=== PATIENT | male | born 1955 | race Caucasian/White ===

== ENCOUNTER 2017-12-12 19:55 | Observation (INO) | payer BC ==
[~2017-12-12 19:55] MED LIST: Iopamidol 370 76% 100 ML VIAL ONE
[2017-12-12] MEDS ORDERED: Haloperidol Lactate 5 MG/ML VIAL ONE (20:13)
[2017-12-12 20:36] LABS: Bilirubin Negative (Negative); Blood, Urine Trace (Negative); Clarity CLOUDY (Clear); Glucose, Urine (Dipstick) Negative (Negative); Leukocyte Negative (Negative); Nitrite Negative (Negative); Protein, Urine (Dipstick) 100 mg/dL (Neg-Trace); Specific Gravity, Urine 1.016 (1.002-1.036); Urobilinogen 0.2 mg/dL (0.2-1.0)
[2017-12-12 20:38] LABS: Bacteria/HPF None Seen HPF (None Seen); Hyaline Casts/LPF 0-3 HYALINE CAST LPF (0-3 Hyaline); Pathc Cast-AUWi Flag 0.72 (0-2.49); RBC/HPF 0-3 HPF (0-3); Squamous Epithelial 0-3 HPF (0-3); WBC/HPF 0-3 HPF (0-3)
--- NOTE | 2017-12-12 20:50 | RAD ---
SINGLE VIEW OF THE CHEST: Comparison: 03-06-16 History: Vomiting since Wednesday. Chronic back pain. Shortness of breath. FINDINGS: Single view of the chest shows a normal sized cardiomediastinal silhouette. There is no evidence of c onsolidation, mass, or pleural effusion. The bones are unremarkable. IMPRESSION: No evidence of acute cardiopulmonary disease. POS: [facility]
[2017-12-12 21:23] LABS: CKMB 5.2 ng/mL (0-6.6); Troponin I 0.136 ng/mL (< 0.028)
[2017-12-12 21:28] LABS: ALT (SGPT) 26 U/L (8-55); AST (SGOT) 37 U/L (5-34); Albumin 4.1 g/dL (3.4-4.8); Alkaline Phosphatase 58 U/L (40-150); Anion Gap 17 mmol/L (10-20); BUN (Urea Nitrogen) 29 mg/dL (8.4-25.7); Bilirubin, Total 1.2 mg/dL (0.2-1.2); CK (CPK) 365 U/L (30-200); Calc. Creatinine Clearance 0 mL/min (70-130); Calcium 9.3 mg/dL (7.8-10.44); Carbon Dioxide 19 mmol/L (23-31); Chloride 104 mmol/L (98-107); Estimated GFR-MDRD 50; Globulin 3.2 g/dL (2.4-3.5); Glucose 104 mg/dL (80-115); Protein, Total 7.3 g/dL (5.8-8.1); Sodium 136 mmol/L (136-145)
[2017-12-12 22:05] LABS: Amphetamine Not Detected (NotDetected); Barbiturates Screen Not Detected (NotDetected); Benzodiazepine Screen Detected (NotDetected); Cocaine Metabolite Screen Not Detected (NotDetected); Medtox Control Line Valid? VALID (VALID); Medtox Reader # READER 1; Methadone Not Detected (NotDetected); Methamphetamine Not Detected (NotDetected); Opiate Screen Not Detected (NotDetected); Oxycodone Screen Not Detected (NotDetected); Phencyclidine (PCP) Not Detected (NotDetected); THC/Cannabinoid Screen Detected (NotDetected); Tricyclic Screen Not Detected (NotDetected)
[2017-12-12] MEDS ORDERED: Lorazepam 2 MG/ML VIAL ONE (22:33)
[2017-12-12] MEDS ORDERED: Ondansetron HCl/PF 4 MG/2 ML Vial IVP PRN (22:34)
[2017-12-12] MEDS ORDERED: Acetaminophen 325 MG TAB PO PRN (22:34)
[2017-12-12] MEDS ORDERED: Ondansetron ODT 4 MG TAB PO PRN (22:36)
--- NOTE | 2017-12-12 22:54 | CT ---
CT ABDOMEN AND PELVIS WITH IV CONTRAST: History: Abdominal pain, vomiting. FINDINGS/IMPRESSION: Comparison is made with exam of 03-04-16 and 07-07-15. Absence of oral contrast reduces the sensitivity of the exam for evaluation of bowel. The lung bases are clear. 1.3 cm cyst in the left lobe of the liver and bilateral renal cysts are sta ble. Tiny nonobstructing left renal calculus is again seen in the anterior pole of the left kidney. N o calcified gallstones are noted. Left adrenal nodules are stable since the noncontrast CT scan of and consistent with adenomas. No free air, free fluid, or lymphadenopathy is seen in the abdomen or pelvis. Vascular calcifications without evidence of aneurysmal dilatation of the abdominal aorta. A normal appearing appendix is see n. Prostate is mildly enlarged. There is colonic diverticulosis without evidence of diverticulitis. T here are degenerative changes in the spine. There are fat containing small left inguinal hernia is ag ain seen. IMPRESSION: No Acute Process. POS: [facility]
[2017-12-13] MEDS ORDERED: hydrALAZINE 20 MG/ML VIAL SLOW IVP PRN (00:34)
[2017-12-13 00:36] LABS: Troponin I 0.135 ng/mL (< 0.028)
--- NOTE | 2017-12-13 01:44 | HP ---
CHIEF COMPLAINT: Severe nausea and vomiting. PRIMARY CARE DOCTOR: Dr. White. CODE STATUS: FULL CODE. TIME OF EVALUATION: 2240 hours. HISTORY OF PRESENT ILLNESS: This is a 62-year-old male with past medical history of cyclic vomiting, use of marijuana, in the past has received multiple workups for this reason and no explanation has been given to the patient, and the report read as being only associated with marijuana use, this time they believe that it might be not related to it since the patient has not been smoking marijuana for quite some time or guess they did occasionally, history regarding these matters is not being very coherent. The patient reported that the symptoms are [id number], he is unable to hold anything down, the patient now does have received Zofran, as being able to drink water. No clear triggers. No alleviating factors. He was found to have mildly elevated troponin, acute kidney injury, and for those reasons he is being admitted in the hospital. REVIEW OF SYSTEMS: Constitutional: The patient reported no fever. He did have some chills, generalized weakness. Respiratory: No cough, no sputum production, no shortness of breath. Cardiovascular: No chest pain, palpitation , shortness of breath. Gastrointestinal: The patient has recurrent nausea and vomiting. No diarrhea, no abdominal pain. OFFSET PRINTER: No dizziness, headache, or feeling lightheaded. Genitourinary: No burning on urination. Extremities: No leg swelling. All other systems were reviewed and negative except for the findings mentioned above. PAST MEDICAL HISTORY: Patient has a history of hypertension, enlarged prostate , cyclic vomiting. FAMILY HISTORY: Reviewed and noncontributory for current presentation. PAST SURGICAL HISTORY: Left kidney surgery, hernia repair, left foot surgery, tonsillectomy. PSYCHIATRIC HISTORY: No significant history. SOCIAL HISTORY: The patient drinks socially. Patient uses marijuana on a daily basis, reported as just taking for pain. KNOWN ALLERGIES: No known drug allergies. REPORTED MEDICATIONS: Amlodipine 10 mg once a day, Lasix 40 mg two times a day , terazosin 10 mg once a day, Cymbalta 60 mg orally once a day, melatonin 10 mg once a day. PHYSICAL EXAMINATION: VITAL SIGNS: Temperature 98.8, pain 4, heart rate 85, respiratory rate 20, oxygen saturation 97 on room air, blood pressure 170/117 that came down to 144/ 87. GENERAL APPEARANCE: The patient is alert, oriented, in no acute distress. HEENT: Eye, normal conjunctivae. Moist oral mucosa. Eye anicteric. NECK: No JVD. RESPIRATORY: Bilateral air entry. No rales, no wheezes. Symmetric expansion. CARDIOVASCULAR: Normal rate, regular rhythm, no murmur, no gallop, no edema. ABDOMEN: Soft, normal bowel sounds. MUSCULOSKELETAL: Baseline range of motion and strength. No tenderness. SKIN: Warm and intact. No pallor, no rash, no redness. NEUROLOGIC: Baseline sensory. No evidence of any new focal weakness. Baseline speech. Cranial nerves seem to be intact. PSYCHIATRIC: The patient is in good mood. No anxiety. Optimal judgment. LABORATORY DATA: The labs were reviewed. The patient has a sodium 133, potassium 4, chloride 104, carbon dioxide 19, creatinine 1.44, BUN 29, AST 37, total bilirubin 1.2. CK 365, troponin 0.136. The initial one at 6:00 p.m. was 0.154. The urine was normal. The toxicology was reviewed. The patient is positive for benzodiazepines and marijuana. Chest x-ray was negative for any acute process. Abdominal and pelvis CT was negative for any acute process. ASSESSMENT AND PLAN: The patient will be placed in the hospital for the following medical condition. 1. Recurrent nausea and vomiting: We will treat symptomatically, likely secondary to marijuana use/withdrawal. Also, patient and family refused to accept that fact. It is my understanding the patient has received extensive workup in the past. No organic problem as before. Ct. abdomen negative. 2. Acute kidney injury: The patient presented with a creatinine of 1.8. In previous admission, it was 0.95. The patient might be dehydrated, because of the nausea and vomiting and because he has been unable to feed himself. We will treat the underlying condition. We will give hydration. We will monitor kidney function. 3. Elevated troponin, 0.136, this is minimal, could be related to type 2 non-ST -elevation myocardial infarction. We will trend troponins. Could be also due to acute kidney injury. The patient has no chest pain, no other findings on EKG to suggest acute coronary syndrome. 4. Chronic use of marijuana: The patient reported that he does it for pain relief, but advised to switch to a different pain management strategy. 5. Deep venous thrombosis prophylaxis. 6. Uncontrolled hypertension. The patient presented with a blood pressure higher than 140, reconcile home medications, adjust treatment as needed. This is chronic. MTDD
[2017-12-13] MEDS: Sodium Chloride 0.9% 1,000 ML IV SCH ×2 (02:17→16:49)
[2017-12-13 03:06] LABS: #Lymphocytes 1.1 thou/uL (1.20-3.40); #Monocytes 0.9 thou/uL (0.11-0.59); #Neutrophils 8.1 thou/uL (1.40-6.50); %Basophils 0.1 % (0.0-1.0); %Eosinophils 0.1 % (0.0-10.0); %Lymphocytes 10.8 % (21.0-51.0); %Monocytes 8.6 % (0.0-10.0); %Neutrophils 80.4 % (42.0-75.0); Hemoglobin 15.3 g/dL (14.0-18.0); Mean Corpuscular HGB CONC 34.7 g/dL (32.0-36.0); Mean Corpuscular Hemoglobin 31.1 pg (27.0-31.0); Mean Corpuscular Volume 89.7 fL (78.0-98.0); Mean Platelet Volume 7.4 fL (7.4-10.4); Platelet Count 198 thou/uL (130-400); RBC Distribution Width 12.3 % (11.5-14.5); Red Blood Cell (RBC) Count 4.92 mill/uL (4.70-6.10); White Blood Cell (WBC) Count 10.1 thou/uL (4.8-10.8)
[2017-12-13 03:37] LABS: Troponin I 0.112 ng/mL (< 0.028)
[2017-12-13 04:10] LABS: Anion Gap 14 mmol/L (10-20); BUN (Urea Nitrogen) 22 mg/dL (8.4-25.7); Calc. Creatinine Clearance 98 mL/min (70-130); Calcium 9.5 mg/dL (7.8-10.44); Carbon Dioxide 25 mmol/L (23-31); Chloride 103 mmol/L (98-107); Estimated GFR-MDRD 63; Glucose 111 mg/dL (80-115); Sodium 139 mmol/L (136-145)
[2017-12-13 05:05] LABS: Lactic Acid 0.8 mmol/L (0.5-2.2)
[2017-12-13] MEDS ORDERED: Potassium Chloride 10 MEQ TAB PO SCH (08:00)
[2017-12-13] MEDS ORDERED: DULoxetine 60 MG CAP PO SCH ×2 (09:00)
[2017-12-13] MEDS ORDERED: Metoprolol Tartrate 25 MG TAB PO SCH (09:00)
[2017-12-13] MEDS ORDERED: Terazosin HCl 5 MG CAP PO SCH (09:00)
[2017-12-13] MEDS ORDERED: Amlodipine 10 MG TAB PO SCH (09:00)
[2017-12-13] MEDS ORDERED: Multivit, Therapeutic 1 TAB PO SCH (09:00)
[2017-12-13] MEDS ORDERED: hydrALAZINE 25 MG TAB PO SCH (09:00)
[2017-12-13 09:23] LABS: Troponin I 0.066 ng/mL (< 0.028)
--- NOTE | 2017-12-13 11:33 | CON ---
DATE OF CONSULTATION: 12/13/2017 HISTORY: Arsh Babcock is a 62-year-old white male who over the last 2-1/2 years has had several admissions for intractable nausea and vomiting. The most recent episode was in 02/2016. EGD at that time showed a shallow gastric ulcer and severe duodenitis. He again had an episode with onset of nausea and vomiting on 12/10/2017. He stated that he was nauseated and would vomit for 10- 12 hours. On the , he seemed to improve, then again on , he began to have intractable nausea and vomiting. When he has the nausea and vomiting episodes, he states that he becomes very diaphoretic and mildly short of breath , but denies any chest, arm, neck, or jaw discomfort during that time. He had very minimally elevated cardiac enzymes despite he had continual nausea and vomiting for 10-12 hours. PAST MEDICAL HISTORY: Hypertension. He denies any history of hypercholesterolemia, although LDL was 120 in 05/2017. History of benign prostatic hypertrophy. OPERATIONS: Left kidney surgery, hernia repair, left foot surgery, tonsillectomy. MEDICATIONS AT HOME: Include amlodipine/valsartan 10/160 daily, Valium 10 mg p.r.n., Cymbalta 60 mg daily, hydralazine 25 b.i.d., metoprolol 12.5 b.i.d., and Hytrin 10 mg daily. ALLERGIES: None. SOCIAL HISTORY: He smoked for 30 years, stopped 20 years ago. He does continue to dip snuff, however. Uses marijuana on a daily basis. FAMILY HISTORY: Negative for coronary artery disease in immediate family. REVIEW OF SYSTEMS: Twelve-point review of systems otherwise unremarkable. PHYSICAL EXAMINATION: VITAL SIGNS: Blood pressure 159/99, pulse 75. HEENT: PERRL. NECK: Supple. CHEST: Clear. CARDIAC: S1 and S2 are normal, without any S3, S4 or murmurs. Carotid upstrokes are normal without bruits. ABDOMEN: Normal bowel sounds without tenderness. EXTREMITIES: Revealed no clubbing, cyanosis or edema. NEUROLOGIC: Grossly intact. SKIN: Warm and dry. IMAGING DATA AND LABORATORY DATA: EKG reveals normal sinus rhythm with left anterior fascicular block. CBC is unremarkable. When admitted, BUN was 34, creatinine 1.81. However, with hydration creatinine is now 1.17 with BUN of 22. Sodium 139, potassium 3.0, chloride 103 and carbon dioxide 25. Peak troponin I is 0.154 at the time of admission. CK-MB x2 are normal. CK is elevated at 365. Chest x-ray is unremarkable. Abdominal and pelvis CT revealed no acute process. IMPRESSION: 1. Elevated troponin I with normal MB. This is probably due to demand ischemia in the setting of acute kidney injury. It would seem as if his intractable nausea, vomiting, shortness of breath and diaphoresis were symptoms of myocardial ischemia, his troponin I levels would be much higher with this occurring for 10-12 hours. 2. Intractable nausea and vomiting of uncertain etiology. 3. Hypertension. 4. Hypercholesterolemia with LDL of 120 in the past, untreated. 5. Former smoker, although continues to use snuff. PLAN: Patient will undergo adenosine Cardiolite testing. Further evaluation will depend upon results of that test. MTDD
[2017-12-13] MEDS: Potassium Chloride 40 MEQ in Sodium Chloride 0.9% 250 ML 250 ML IVPB SCH ×2 (12:04→18:20)
[2017-12-13] MEDS ORDERED: ADENOSINE 60 MG/20 ML VIAL ONE (13:30)
[2017-12-13] MEDS: Heparin 5,000 UNITS/ML VIAL SC SCH ×4 (13:42→16:55)
--- NOTE | 2017-12-13 14:01 | PDOC.PN ---
- Subjective Encounter Start Date: 12/13/17 Encounter Start Time: 08:00 Pt seen for followup re: nausea and vomiting. feels better. No chest pain. No fevers or chills. - Objective Resuscitation Status: Resuscitation Status FULL:Full Resuscitation Vital Signs & Weight: Vital Signs (12 hours) Temp Pulse Resp BP BP Pulse Ox 12/13/17 11:03 98.0 F 66 18 130/81 95 12/13/17 09:33 75 12/13/17 09:00 98.2 F 75 12 12/13/17 07:22 98.2 F 75 12 159/99 H 93 L 12/13/17 04:11 98.8 F 79 16 127/72 93 L 12/13/17 02:22 18 151/87 H 73 L Weight Weight 228 lb 9.6 oz I&O: 12/12/17 12/13/17 12/14/17 06:59 06:59 06:59 Intake Total 181 Output Total 550 Balance -369 Result Diagrams: 12/13/17 02:57 12/13/17 02:57 Phys Exam - Physical Examination Constitutional: NAD HEENT: sclera anicteric, oral pharynx no lesions, 2+ tonsils Dry mucosae Neck: no nodes, no JVD, supple, full ROM Respiratory: no wheezing, no rales, no rhonchi, clear to auscultation bilateral Cardiovascular: RRR, no rub S1, S2 Gastrointestinal: soft, non-tender, no distention, positive bowel sounds Musculoskeletal: no edema Neurological: moves all 4 limbs Psychiatric: normal affect, A&O x 3 Dx/Plan (1) Nausea and vomiting Code(s): R11.2 - NAUSEA WITH VOMITING, UNSPECIFIED Status: Acute Comment: Improving, continue antiemetics as below (2) Hypokalemia Code(s): E87.6 - HYPOKALEMIA Status: Acute Comment: replace potassium (3) Elevated troponin Code(s): R74.8 - ABNORMAL LEVELS OF OTHER SERUM ENZYMES Status: Acute Comment: monitor on telemetry, await cardiology input (4) BPH (benign prostatic hyperplasia) Code(s): N40.0 - BENIGN PROSTATIC HYPERPLASIA WITHOUT LOWER URINRY TRACT SYMP Status: Chronic Comment: stable (5) HTN (hypertension) Code(s): I10 - ESSENTIAL (PRIMARY) HYPERTENSION Status: Chronic Comment: Monitor vital signs, titrate antihypertensives as needed (6) DAVIN (acute kidney injury) Code(s): N17.9 - ACUTE KIDNEY FAILURE, UNSPECIFIED Status: Resolved - Plan * . Review of Systems - Review of Systems Constitutional: negative: fever, chills, sweats, weakness, malaise Respiratory: negative: Cough, Shortness of Breath, SOB with Excertion, Pleuritic Pain, Wheezing Cardiovascular: negative: chest pain, palpitations, orthopnea, paroxysmal nocturnal dyspnea, edema, light headedness, other Gastrointestinal: Nausea, Vomiting. negative: Abdominal Pain, Diarrhea, Constipation, Melena, Hematochezia Genitourinary: negative: Dysuria, Frequency, Incontinence, Hematuria, Retention Skin: negative: Rash, Lesions, Randy, Bruising - Medications/Allergies Allergies/Adverse Reactions: Allergies Allergy/AdvReac Type Severity Reaction Status Date / Time No Known Allergies Allergy Verified 12/12/17 23:34 Medications: Current Medications Acetaminophen (Tylenol) 650 mg PO Q4H PRN PRN Reason: Headache/Fever or Pain Amlodipine Besylate (Norvasc) 10 mg PO DAILY [facility] Last Admin: 12/13/17 09:33 Dose: 10 mg Duloxetine HCl (Cymbalta) 60 mg PO DAILY [facility] Last Admin: 12/13/17 09:33 Dose: 60 mg Heparin Sodium (Porcine) (Heparin) 5,000 units SC TID [facility] Last Admin: 12/13/17 13:42 Dose: Not Given Hydralazine HCl (Apresoline) 25 mg PO BID [facility] Last Admin: 12/13/17 09:33 Dose: 25 mg Hydralazine HCl (Apresoline) 10 mg SLOW IVP Q4H PRN PRN Reason: BP>160/100 Sodium Chloride (Normal Saline 0.9%) 1,000 mls @ 75 mls/hr IV .[id number] [facility] Last Admin: 12/13/17 02:17 Dose: 1,000 mls Potassium Chloride 40 meq/ (Sodium Chloride) 270 mls @ 67.5 mls/hr IVPB NOW [facility] Stop: 12/13/17 15:59 Last Admin: 12/13/17 12:04 Dose: 270 mls Melatonin (Melatonin) 3 mg PO [facility] Metoprolol Tartrate (Lopressor) 12.5 mg PO BID [facility] Last Admin: 12/13/17 09:34 Dose: 12.5 mg Multivitamins (Theragran) 1 tab PO DAILY [facility] Last Admin: 12/13/17 09:33 Dose: 1 tab Ondansetron HCl (Zofran) 4 mg IVP Q6H PRN PRN Reason: Nausea/Vomiting Ondansetron HCl (Zofran Odt) 4 mg PO Q4H PRN PRN Reason: Nausea/Vomiting Pantoprazole Sodium (Protonix) 40 mg PO BID [facility] Potassium Chloride (Klor-Con 10) 10 meq PO [facility]A-[facility] Last Admin: 12/13/17 13:42 Dose: Not Given Terazosin HCl (Hytrin) 10 mg PO DAILY [facility] Last Admin: 12/13/17 09:33 Dose: 10 mg
[2017-12-13 14:28] VITALS: BMI 30.9
--- NOTE | 2017-12-13 15:57 | NM ---
NUCLEAR MEDICINE CARDIAC STRESS WITH EF AND WALL MOTION: HISTORY: Elevated troponin. COMPARISON: None. TECHNIQUE: The patient was administered 9 millicuries of technetium 99m sestamibi for rest imaging and 31 millic uries of technetium 99m sestamibi for stress imaging. FINDINGS: There is a homogeneous distribution of the radiotracer in the left ventricle on the attenuation corre cted images. There is no evidence of reversibility or fixed defect. CAD is 1.1. End-diastolic volume is 179 mL. End-systolic volume is 78 mL. CARDIAC GATING: Normal motion and thickening. Ejection fraction 56%. IMPRESSION: 1. No reversibility. No fixed defect. 2. Ejection fraction 56%. POS: [facility]
[2017-12-13 15:58] VITALS: BP 145/86; TEMP 98.6
[2017-12-13] MEDS ORDERED: Potassium Chloride 20 MEQ TAB PO SCH (16:45)
[2017-12-13] MEDS ORDERED: Melatonin 3 MG TAB PO SCH (21:00)
--- NOTE | 2017-12-14 03:25 | DIS ---
PRIMARY CARE PROVIDER: Jake White M.D. DATE OF ADMISSION: 12/12/2017 DATE OF DISCHARGE: 12/13/2017 DISCHARGE DIAGNOSES: 1. Nausea and vomiting. 2. Elevated troponin I. 3. Acute renal insufficiency. 4. Hypokalemia. CONDITION OF PATIENT ON THE DAY OF DISCHARGE: Stable. I assessed Mr. Babcock on the day of discharg e. Please refer to my daily hospitalist progress note for further information regarding this face-to -face encounter. DISCHARGE MEDICATIONS: No change was made to his preadmission home medications. He is being dischar ged home on amlodipine/valsartan 10/160 mg daily, Valium 10 mg as directed, Cymbalta 60 mg daily, hyd ralazine 25 mg 2 times a day, Lopressor 12.5 mg 2 times a day, and terazosin 10 mg daily. CONSULTATIONS DURING THIS HOSPITALIZATION: Cardiology, Dr. Bustillo. HOSPITAL COURSE: Mr. Babcock is a pleasant 62-year-old gentleman, who was admitted to [facility] on 12/12/2017 for nausea and vomiting, likely secondary to marijuana use. He was also found to have elevated troponin I and acute renal insufficiency. His nausea and vomiting resol sparkle following admission. Acute renal failure also resolved after he received intravenous fluids. He was seen by Cardiology Service and underwent a nuclear stress test on 12/13/2017. He was found to h ave left ventricular ejection fraction of 56%. There was no reversibility or fixed defect on the str ess test. He also had a normal D-dimer. He did not have any further symptoms and is being discharged home in a stable condition. On the day of discharge, he has an unremarkable CBC, normal sodium, decreased potassium of 3.0, which is being replaced and a creatinine of 1.17. Urine drug screen during this hospitalization was posit alhaji for benzodiazepines and cannabinoids. He has been advised to stop cannabinoid use. Many thanks for allowing me to participate in your patient's care. Please feel free to contact me wi th any questions or concerns. DISCHARGE DESTINATION: Home.
--- NOTE | 2017-12-17 10:08 | STRESS ---
Acquisition Time: 2017-12-13 14:08:52 Total Exercise Time: 00:04:00 Test Indications: ELEVATED TROPONINS Medications: Protocol: ADENOSINE Max HR: 076 BPM 48% of Pred: 157 BPM Max BP: 146/072 mmHG Max Work Load: 1.0 METS RESTING ECG: NORMAL SINUS RHYTHM AT65 BPM WITH NON-SPECIFIC T-WAVE CHANGES SYMPTOMS: CHEST AND THROAT TIGHTNESS NORMAL BP RESPONSE ECTOPY: BLOCKED PAC'S ECG STRESS: NO SIGNIFICANT CHANGES INTERPRETATION: AWAIT NUCLEAR IMAGES FOR DEFINITIVE DIAGNOSIS Confirmed by ALTON CAMPBELL (2), editor magazine XENIA HOLLINS ([id number]) on 12/17/2017 10:08:15 AM Referred By: MD Porfirio CAMPBELL Confirmed By:ALTON CAMPBELL
== END 2017-12-13 18:17 | disposition home or self-care (01) ==
LOC: ERS 19:55 → 2SW 22:26
PROVIDERS: ADMIT Hospitalist; ATTEND Hospitalist
DX: R11.2 Nausea with vomiting, unspecified (principal); R79.89 Other specified abnormal findings of blood chemistry; N28.9 Disorder of kidney and ureter, unspecified; E87.6 Hypokalemia; I10 Essential (primary) hypertension; E78.00 Pure hypercholesterolemia, unspecified; N40.0 Benign prostatic hyperplasia without lower urinary tract symptoms; Z79.899 Other long term (current) drug therapy; Z87.891 Personal history of nicotine dependence
CPT/HCPCS: 36415; 71045; 74177; 78452; 80048; 80306; 81003; 81015; 83605; 84484; 85025; 85379; 93017; 96361; 96374; 96375; A9500; G0378; J0153; J1630; J1644; J2060; J3480; J7050

== ENCOUNTER 2018-01-10 08:28 | Outpatient (CLI) | payer BC | END 2018-01-10 08:29 | disposition home or self-care (01) | LOC: BICMRI 08:28 | PROVIDERS: ATTEND Family Medicine | DX: M54.2 Cervicalgia (principal); M54.5 Low back pain; M48.02 Spinal stenosis, cervical region; M48.061 Spinal stenosis, lumbar region without neurogenic claudication; M99.81 Other biomechanical lesions of cervical region; M99.83 Other biomechanical lesions of lumbar region; M47.896 Other spondylosis, lumbar region | CPT/HCPCS: 72141; 72148 ==

== ENCOUNTER 2018-06-24 10:15 | Inpatient (IN) | payer BC ==
[2018-06-28] MEDS ORDERED: CEFAZOLIN 2 GM/50 ML BAG ONE (06:09)
[2018-06-28] MEDS ORDERED: Tranexamic Acid 1,000 MG/10 ML VIAL ONE ×2 (06:09→10:24)
[2018-06-28] MEDS ORDERED: Sodium Chloride 0.9% 100 ML ONE (06:09)
[2018-06-28] MEDS ORDERED: Fentanyl 100 MCG/2 ML VIAL ONE (06:33)
[2018-06-28] MEDS ORDERED: Midazolam HCl 2 mg/2 ml Vial ONE (06:33)
[2018-06-28] MEDS ORDERED: Lidocaine 1% (PF) 30 ML VIAL ONE (07:11)
[2018-06-28] MEDS ORDERED: traMADol HCl 50 MG TAB PO PRN ×4 (07:25→12:41)
[2018-06-28] MEDS ORDERED: HYDROcodone/Acetaminophen 10/325 mg Tablet PO PRN ×3 (07:25→12:41)
[2018-06-28] MEDS ORDERED: Ondansetron PF 4 MG/2 ML Vial IVP PRN ×2 (07:25→12:41)
[2018-06-28] MEDS ORDERED: Promethazine HCl 25 MG/ML VIAL IM PRN ×2 (07:25→09:06)
[2018-06-28] MEDS ORDERED: Ropivacaine 0.2% 550 ML 550 ML NERVE BLCK SCH (07:25)
[2018-06-28] MEDS ORDERED: Zolpidem Tartrate 5 MG TAB PO PRN ×2 (07:25→12:41)
[2018-06-28] MEDS ORDERED: Promethazine HCl 25 MG/ML VIAL SLOW IVP PRN (09:06)
[2018-06-28] MEDS ORDERED: Ondansetron HCl/PF 4 MG/2 ML Vial IVP PRN (09:06)
[2018-06-28] MEDS ORDERED: Tranexamic Acid 1,000 MG in Sodium Chloride 0.9% 100 ML IVPB SCH (10:00)
[2018-06-28] MEDS ORDERED: Ropivacaine 0.5% HCl/PF (150 MG/30 ML VIAL) ONE (10:13)
[2018-06-28] MEDS ORDERED: Ropivacaine 0.2% HCl/PF (40 MG/20 ML VIAL) ONE (10:13)
--- NOTE | 2018-06-28 11:58 | RAD ---
RADIOGRAPH LEFT SHOULDER TWO VIEWS: Date: 06-28-18 History: 63-year-old male with chronic left shoulder pain due to osteoarthritis. FINDINGS: Anterior skin duane. Metallic humeral head prosthesis with short stem that reaches the proximal remy physis. Resurfacing changes of the glenoid. Subcutaneous emphysema. Nonspecific retrocardiac opacific ation of left lung, perhaps atelectasis. IMPRESSION: Very recently status post left glenohumeral shoulder joint replacement arthroplasty. POS: [facility]
[2018-06-28] MEDS ORDERED: ePHEDrine/0.9% NaCl/PF SYRINGE 50 mg/10 ml ONE (12:40)
[2018-06-28] MEDS ORDERED: PROPOFOL 200 MG/20 ML VIAL ONE (12:40)
[2018-06-28] MEDS ORDERED: Ondansetron PF 4 MG/2 ML Vial ONE (12:40)
[2018-06-28] MEDS ORDERED: Lidocaine 1% PF 5 ML VIAL ONE (12:40)
[2018-06-28] MEDS ORDERED: diphenhydrAMINE 50 MG CAP PO PRN (12:41)
[2018-06-28] MEDS ORDERED: Acetaminophen 325 MG TAB PO PRN (12:41)
[2018-06-28] MEDS ORDERED: Methocarbamol 500 MG TAB PO PRN (12:41)
[2018-06-28] MEDS ORDERED: Ondansetron ODT 4 MG TAB PO PRN (12:41)
[2018-06-28] MEDS ORDERED: Methocarbamol 1 GM/10 ML VIAL SLOW IVP PRN (12:41)
[2018-06-28] MEDS ORDERED: Bisacodyl 10 MG SUPP PR PRN (12:41)
[2018-06-28] MEDS ORDERED: Milk Of Magnesia 30 ML UDCUP PO PRN (12:41)
[2018-06-28] MEDS ORDERED: Ketorolac Tromethamine 30 MG/ML VIAL IVP PRN (12:41)
[2018-06-28] MEDS ORDERED: CEFAZOLIN/Water 2 GM/20 ML SYRINGE SLOW IVP SCH (12:41)
[2018-06-28] MEDS ORDERED: Famotidine 20 MG TAB PO SCH (13:30)
[2018-06-28] MEDS ORDERED: CEFAZOLIN 2 GM/50 ML-DEXTROSE 2 GM in Premix Bag 1 BAG IVPB SCH (14:00)
[2018-06-28 15:24] VITALS: BMI 39.3
[2018-06-28] MEDS: Sodium Chloride 0.9% 1,000 ML IV SCH (15:45)
[2018-06-28] MEDS: CEFAZOLIN 2 GM/50 ML-DEXTROSE 2 GM in Premix Bag 1 BAG IVPB SCH ×2 (15:45→23:22)
[2018-06-28] MEDS: Fentanyl 100 MCG/2 ML VIAL SLOW IVP PRN ×2 (17:19→18:48)
[2018-06-28] MEDS: Famotidine 20 MG TAB PO SCH (20:03)
[2018-06-28] MEDS: Metoprolol Tartrate 25 MG TAB PO SCH (20:03)
[2018-06-28] MEDS: HYDROcodone/Acetaminophen 10/325 mg Tablet PO PRN (20:04)
[2018-06-28] MEDS ORDERED: Terazosin HCl 5 MG CAP PO SCH (21:00)
[2018-06-28] MEDS ORDERED: DULoxetine 60 MG CAP PO SCH (21:00)
[2018-06-29] MEDS: HYDROcodone/Acetaminophen 10/325 mg Tablet PO PRN ×2 (01:57→08:16)
[2018-06-29 04:21] VITALS: TEMP 98.3
[2018-06-29] MEDS: Sodium Chloride 0.9% 1,000 ML IV SCH (05:15)
[2018-06-29] MEDS: Famotidine 20 MG TAB PO SCH (08:17)
[2018-06-29] MEDS: Metoprolol Tartrate 25 MG TAB PO SCH (08:17)
[2018-06-29 08:19] VITALS: BP 149/88
[2018-06-29] MEDS ORDERED: Valsartan 80 MG TAB PO SCH (09:00)
[2018-06-29] MEDS ORDERED: Amlodipine 10 MG TAB PO SCH (09:00)
--- NOTE | 2018-06-29 13:37 | OP ---
DATE OF PROCEDURE: 06/28/2018 PREOPERATIVE DIAGNOSES: Left shoulder osteoarthritis with biceps tendinopathy. POSTOPERATIVE DIAGNOSES: Left shoulder osteoarthritis with biceps tendinopathy. PROCEDURES PERFORMED: 1. Left total shoulder arthroplasty. 2. Left biceps tenodesis. APPOINTMENT SETTER: Catrina Perez PA-C. ANESTHESIOLOGIST: Jose Abdalla. ANESTHESIA: The patient received a general endotracheal intubation with interscalene block. ESTIMATED BLOOD LOSS: 300 mL. TOURNIQUET TIME: None. IMPLANTS: Tornier glenoid 5 with M40 CORTILOC stem, 3B flex stem and a 48 x 18 mm high offset head. ANTIBIOTICS: Ancef 2 g, vancomycin 2 g, and TXA 1 g. COMPLICATIONS: Skin abrasion. HISTORY OF PRESENT ILLNESS: Mr. Babcock is a pleasant 63-year-old male, who is borderline obese, presented with left shoulder pain for over 3 years. The patient followed with conservative measures. The patient had a CT scan showing intact cuff, but a partial-thickness tear. I discussed with the patient the risks and benefits of left shoulder arthroplasty and biceps tenodesis to include pain, scar, bleeding, infection, damage to vital structures, decreased range of motion and strength, fracture, any further surgeries needed for hardware removal, and loss of life or limb. He understood these risks and benefits and would like to proceed. DESCRIPTION OF PROCEDURE: A time-out was performed designating the patient's left upper extremity as the operative site, based on site, consent, and markings. After time-out, the patient had an Ioban applied. The patient had a deltopectoral incision made down through the deltopectoral interval, came between the deltoid intact, found the fat stripe, came down, found the vein, took it laterally, came down and took down a centimeter intact from the conjoint and exposed the shoulder. I took down the patient using biceps from laterally to expose the biceps, followed up into the interval. Cut down the subscapularis taking it off and capsule completely off and peel from lateral to medial. Exposed the inferior neck removing any osteophytes. We then exposed the head, placed a and cut the humeral head. I ended up having a little bit of a high side posteriorly, which I recut. We then exposed the entire humerus. We broached and went down to 3B. Next, went up to 4 first and reamed on top, the reamer skipped off and just abraded over the skin, thus a distal incision, but did not take off any full-thickness skin injury. We then moved down to 3B, finally got good firm position within the head as well as good fixation. We then removed the stem. We placed a cup cap, moved back to the patient's glenoid. We did 360 degree release around the glenoid. To expose the glenoid, we agree with 360 degree release. We placed retractors in position. We introduced a medium 40 glenoid. We drilled a center hole. We then reamed, increased our center hole, and placed our implant in place. We drilled for cortical pegs, placed our cortical pegs in position. We trialed, like that we then cemented in the exterior holes, placed our cortical peg back in position, and moved back to our humerus. These are humerus put pressure on the glenoid. We then, went up into size and liked the fit of the 40 of the 48 mm head, I fitted across the trial size. Otherwise, felt a good fit across the head in a good contour with the patient's cartilage surface near the insertion of the rotator cuff. We then trialed, had 50% translation, we came back. He did not stay subluxed. The patient was able to do overhead elevation and internally rotate without any difficulty. I liked the overall position. We then removed. We drilled 4 holes and passed sutures with #5 Ethibond stitches just off the lesser tuberosity. We then drilled a hole and passed a suture in and out through the lateral aspect of the greater tuberosity for stitch over the top. I then put on final implant, reduced the shoulder. I did W stitch passing through the cuff with the needle limb closest to the humerus. I then passed with a free needle through the limb and muscle remnant that was the ligament for the biceps sewed down from inferior to superior with the patient about neutral position. We then cut those knots. We tenodesed the biceps with #1 Ethibonds underneath the remnant the ligament across the bicipital groove. We then undersewed that with 3 stitches. We then oversewed with #1, we then closed the interval with #1 Ethibonds. We then used a 2 stitch that was in the calf and the one that was laterally with the tuberosity oversew. The cross was like a double row equivalent, cut the sutures, washed, and closed the deltopectoral interval, closed subcu and skin with duane. The patient will be admitted to the hospital. He will begin elbow, wrist, and hand motion and passive range of motion. I will see the patient back in clinic back in 2 weeks. The patient will receive 24 hours antibiotics. Job ID: [id number] [facility]
== END 2018-06-29 11:48 | disposition home or self-care (01) | DRG 483 ==
LOC: SURG A 06-28 05:47
PROVIDERS: ADMIT Orthopaedic Surgery; ATTEND Orthopaedic Surgery
PROC: 0RRK0JZ Replacement of Left Shoulder Joint with Synthetic Substitute, Open Approach (ICD-10-PCS; principal; 2018-06-28)
PROC: 0LS40ZZ Reposition Left Upper Arm Tendon, Open Approach (ICD-10-PCS; 2018-06-28)
DX: M19.012 Primary osteoarthritis, left shoulder (principal); M75.21 Bicipital tendinitis, right shoulder
CPT/HCPCS: 80048; 81001; 85025; 86850; 86900; 86901; 90471; 90686; 93005; 93010; A4306; C1713; G0008; J2001; J2250; J2795; J3010; J3370; J7050

== ENCOUNTER 2018-06-27 06:19 | Outpatient (CLI) | payer BC ==
[2018-06-27 09:58] LABS: #Eosinphils 0.1 thou/uL (0.0-0.7); #Lymphocytes 0.9 thou/uL (1.20-3.40); #Monocytes 0.6 thou/uL (0.11-0.59); #Neutrophils 5.6 thou/uL (1.40-6.50); %Basophils 0.4 % (0.0-1.0); %Eosinophils 1.3 % (0.0-10.0); %Lymphocytes 12.3 % (21.0-51.0); %Monocytes 8.4 % (0.0-10.0); %Neutrophils 77.6 % (42.0-75.0); Bilirubin Negative (Negative); Blood, Urine Negative (Negative); Clarity CLEAR (Clear); Glucose, Urine (Dipstick) Negative (Negative); Hemoglobin 15.1 g/dL (14.0-18.0); Leukocyte Negative (Negative); Mean Corpuscular HGB CONC 33.3 g/dL (32.0-36.0); Mean Corpuscular Hemoglobin 30.8 pg (27.0-31.0); Mean Corpuscular Volume 92.5 fL (78.0-98.0); Mean Platelet Volume 7.7 fL (7.4-10.4); Nitrite Negative (Negative); Platelet Count 190 thou/uL (130-400); Protein, Urine (Dipstick) 30 mg/dL (Neg-Trace); Specific Gravity, Urine 1.018 (1.002-1.036); White Blood Cell (WBC) Count 7.2 thou/uL (4.8-10.8); pH, Urine 6.5 (5.0-9.0)
[2018-06-27 09:59] LABS: Bacteria/HPF None Seen HPF (None Seen); Hyaline Casts/LPF 0-3 HYALINE CAST LPF (0-3 Hyaline); Pathc Cast-AUWi Flag 0.14 (0-2.49); Squamous Epithelial 0-3 HPF (0-3); WBC/HPF 0-3 HPF (0-3)
[2018-06-27 10:28] LABS: Anion Gap 12 mmol/L (10-20); BUN (Urea Nitrogen) 21 mg/dL (8.4-25.7); Calc. Creatinine Clearance 0 mL/min (70-130); Calcium 9.6 mg/dL (7.8-10.44); Carbon Dioxide 26 mmol/L (23-31); Chloride 105 mmol/L (98-107); Estimated GFR-MDRD 65; Glucose 92 mg/dL (80-115); Potassium 3.8 mmol/L (3.5-5.1); Sodium 139 mmol/L (136-145)
--- NOTE | 2018-06-27 17:14 | EKG ---
Test Reason : Blood Pressure : / mmHG Vent. Rate : 061 BPM Atrial Rate : 061 BPM P-R Int : 186 ms QRS Dur : 114 ms QT Int : 450 ms P-R-T Axes : 081 -62 228 degrees QTc Int : 453 ms Normal sinus rhythm Pulmonary disease pattern Left anterior fascicular block T wave abnormality, consider inferolateral ischemia possible anterior MN Abnormal ECG When compared with ECG of 04-MAR-2016 12:23, Non-specific change in ST segment in Anterior leads T wave inversion now evident in Inferior leads T wave inversion now evident in Anterolateral leads Confirmed by DR. Owen RANGEL ([id number]) on 06/27/2018 5:13:45 PM Referred By: JUAN Confirmed By:DR. Owen RANGEL
== END 2018-06-27 06:20 | disposition home or self-care (01) ==
LOC: LABBT 06:19
PROVIDERS: ATTEND Orthopaedic Surgery
DX: Z01.818 Encounter for other preprocedural examination (principal); M19.012 Primary osteoarthritis, left shoulder
CPT/HCPCS: 80048; 81001; 85025; 86850; 86900; 86901; 93005; 93010

== ENCOUNTER 2018-11-22 08:00 | Outpatient (CLI) | payer BC ==
--- NOTE | 2018-11-22 09:12 | CT ---
CT ABDOMEN WITH AND WITHOUT IV CONTRAST: INDICATION: Polycystic kidney disease with suspicious cysts. COMPARISON: CT abdomen and pelvis with contrast dated 12/16/2017. FINDINGS: There is a stable 2.7 mm stone involving the inferior pole of the left kidney. There has been interva l enlargement of the simple cyst involving the superior pole of the left kidney measuring 5 cm x 5.8 cm. The proteinaceous cyst involving the left mid kidney measures 2.5 cm, where it previously chata sured 2.3 cm. An additional adjacent proteinaceous cyst involving the inferior pole of the left kidney measures 1.4 cm, where is previously measured 1.2 cm. Additional proteinaceous cyst involving the anterior aspect of left mid kidney measures 1.6 cm, where it present measured 1.5 cm. The mildly proteinaceous cyst involving the superior pole of the right kidney measures 2.2 cm, where it previously measured 1.7 cm. Small renal cortical calcification involving the left mid kidney is likely stable. There are two left adrenal adenomas measuring 2.1 and 1.6 cm, respectively in size, which are stable. Right adrenal gland is normal-appearing. There is a stable left hepatic lobe cyst measuring 1.3 cm. There are scattered diverticula involving the colon. There are scattered vascular calcification involving abdominal pelvic vasculature. There is scattered degenerative and osteoarthritic change. IMPRESSION: 1. Interval enlargement of the bilateral renal cysts. 2. Stable left nephrolithiasis. 3. Stable left hepatic lobe cyst. 4. Colonic diverticulosis. 5. Stable left adrenal adenomas. Transcribed Date/Time: 11/22/2018 9:36 AM
== END 2018-11-22 08:01 | disposition home or self-care (01) ==
LOC: BICCT 08:00
PROVIDERS: ATTEND Urology
DX: Q61.3 Polycystic kidney, unspecified (principal); N28.1 Cyst of kidney, acquired; K57.30 Diverticulosis of large intestine without perforation or abscess without bleeding; D35.02 Benign neoplasm of left adrenal gland; K76.89 Other specified diseases of liver; N20.0 Calculus of kidney
CPT/HCPCS: 74170

== ENCOUNTER 2019-03-15 13:54 | Outpatient (CLI) | payer MEDICARE, BC ==
--- NOTE | 2019-03-15 15:49 | MRI ---
MR OF THE PELVIS WITH AND WITHOUT CONTRAST INDICATION: Abnormal digital rectal exam; proteinuria and COMPARISON: None TECHNIQUE: Multiplanar, multisequence MR images were obtained of the pelvis with and without IV contr ast. 20 cc of MultiHance was utilized for the examination. The examination was reviewed on a separate [employer] 3-D workstation for multiplanar metric evaluation. FINDINGS: Prostate size: The prostate measured 5.2 x 3.6 x 3.6cm. 35.38 cc. Peripheral zone: No area of restricted diffusion is seen within the peripheral zone. Central zone: No suspicious signal abnormality or focal lesion. There are multiple BPH nodule seen wi thin the central aspect of the prostate gland. Neural vasculature: No evidence of neurovascular invasion Regional lymphadenopathy: None Dynamic contrast enhancement: Negative. There is increased enhancement seen within the central zone w hich can be seen with BPH nodules. Osseous structures: No suspicious osseous lesion is identified. Additional findings: None.. IMPRESSION: 1. PIRADS 1-Very Low (clinically significant cancer is highly unlikely to be present.)
[2019-03-15] MEDS ORDERED: Gadobenate Dimeglumine 529 MG/1 ML (20ML VIAL) ONE (18:08)
== END 2019-03-15 13:55 | disposition home or self-care (01) ==
LOC: TBSIIMAG 13:54
PROVIDERS: ATTEND Urology
DX: R93.89 Abnormal findings on diagnostic imaging of other specified body structures (principal)
CPT/HCPCS: 72197; A9577

== ENCOUNTER 2022-02-20 13:27 | Outpatient (CLI) | payer MEDICARE, BC ==
[2022-02-20 16:52] LABS: Anion Gap 13 mmol/L (10-20); BUN (Urea Nitrogen) 18 mg/dL (8.4-25.7); Calc. Creatinine Clearance 0 mL/min (70-130); Calcium 9.7 mg/dL (7.8-10.44); Carbon Dioxide 27 mmol/L (23-31); Chloride 106 mmol/L (98-107); Estimated GFR 94; Glucose 82 mg/dL (80-115); Potassium 3.9 mmol/L (3.5-5.1); Sodium 142 mmol/L (136-145)
== END 2022-02-20 13:28 | disposition home or self-care (01) ==
LOC: LABBT 13:27
PROVIDERS: ATTEND Neurological Surgery
DX: Z01.818 Encounter for other preprocedural examination (principal); Z20.822 Contact with and (suspected) exposure to COVID-19
CPT/HCPCS: 80048; 87811; 93005; 93010

== ENCOUNTER 2022-02-25 07:35 | Day surgery (SDC) | payer MEDICARE, BC ==
[2022-02-20 09:24] VITALS: BMI 32.5
[2022-02-25] MEDS ORDERED: Heparin 10,000 UNITS/ 10 ML VIAL ONE (09:08)
[2022-02-25] MEDS ORDERED: Lidocaine 1% PF 5 ML VIAL ONE (09:11)
[2022-02-25] MEDS ORDERED: Iopamidol 370 76% 100 ML VIAL ONE (15:37)
== END 2022-02-25 13:40 | disposition home or self-care (01) ==
LOC: SDC 07:35
PROVIDERS: ATTEND Neurological Surgery
PROC: B32RZZZ Computerized Tomography (CT Scan) of Intracranial Arteries (ICD-10-PCS; principal; 2022-02-25)
DX: I67.1 Cerebral aneurysm, nonruptured (principal); Z79.899 Other long term (current) drug therapy
CPT/HCPCS: 36228; 75710; C1769 ×3; C1894; J1644; Q9967